=== PATIENT | male | born 1950 | race Caucasian/White ===

== ENCOUNTER 2016-08-30 17:54 | Emergency (ER) | payer MEDICARE, MEDICAID ==
[~2016-08-30] VITALS: Ht 172.7 cm; Wt 58.2 kg
[2016-08-30 18:00] VITALS: Ht 172.7 cm; Wt 58.2 kg
[2016-08-30] MEDS ORDERED: DIPHTH/TET/ACEL PERTUSS (ADULT) 0.5 ML VIAL IM* ONE (18:00)
--- NOTE | 2016-08-30 18:26 | RADRPT ---
PROCEDURE: CT Brain without contrast. CLINICAL INDICATION: Fall with laceration of scalp. TECHNIQUE: A CT of the brain was performed on a [employer] CT scanner utilizi ng a low dose technique with axial imaging from the skull base through the vertex without IV contras t. Multiplanar reformatted images were made. Images were reviewed on a PACS workstation. The CTDI vol is 45 mGy and the DLP is 900.3 mGycm. One or more of the following dose reduction techniques were used: - Automated exposure control. - Adjustment of the mA and/or kV according to patient size. Use of iterative reconstruction technique. COMPARISON: None FINDINGS: There is soft tissue swelling over the right frontal bone consistent with a scalp hematoma. No unde rlying skull fracture is identified. The fourth, third lateral ventricles are normal in size and co nfiguration. The brain parenchyma is normal. An empty sella is suspected. The visible portions of the globes and extraocular muscles are normal. The paranasal sinuses are clear. The mastoid air cells and internal auditory canals are normal. The bony calvarium is intact. IMPRESSION: 1. Negative CT scan of brain without contrast. 2. Small scalp hematoma with soft tissue swelling adjacent to the right frontal bone. 3. Probable empty sella. RPTAT:AAJJ Physician Yina Date Time Electronically viewed and signed by Physician Yina on 08/30/2016 18:26 SHERLYN/
[2016-08-30 19:28] VITALS: BP 149/67; PULSE 70; RESP 16
--- NOTE | 2016-08-30 20:04 | ERD ---
ER Documentation Chief Complaint Date/Time DATE: 08/30/16 TIME: 20:00 Chief Complaint BIB PARAMEDICS - GROUND LEVEL MECHANICAL FALL ; NO KO; FRONTAL HEAD LACERAT HPI Patient is a 66-year-old male with no medical problems who presents with a fall. He was brought in by ambulance. He admits to drinking alcohol and taking Valium. He had a trip and fall and hit his head. He does not know if he lost consciousness. He is an abrasion to the right side of his face. He usually lives in a sober living facility. Upon review of old medical records this is the patient's first visit to the emergency department. His primary doctor is Dr. Zaki Barber. ROS All systems reviewed and are negative except as per history of present illness. Allergies Allergies: Uncoded Allergies: SULFA (Allergy, Mild, 08/30/16) PMhx/Soc Medical and Surgical Hx: pt denies Medical Hx, pt denies Surgical Hx Hx Alcohol Use: Yes Hx Substance Use: No Hx Tobacco Use: Yes Smoking Status: Current every day smoker FmHx Family History: No diabetes Physical Exam Vitals Vital Signs Date Time Temp Pulse Resp B/P Pulse Ox O2 Delivery O2 Flow Rate FiO2 08/30/16 19:28 70 16 149/67 100 Room Air 08/30/16 18:00 98.3 89 18 114/85 97 Physical Exam Const: Abrasion of the right face Head: Abrasion of the right forehead and right face Eyes: Normal Conjunctiva ENT: Normal External Ears, Nose and Mouth. Neck: Full range of motion..~ No meningismus. Resp: Clear to auscultation bilaterally Cardio: Regular rate and rhythm, no murmurs Abd: Soft, non tender, non distended. Normal bowel sounds Skin: Abrasion of the right forehead and right face without laceration Back: No midline or flank tenderness Ext: No cyanosis, or edema Neur: Awake but intoxicated, answering questions appropriately Psych: Normal Mood and Affect Results 24 hrs Current Medications Medications (Trade) Dose Ordered Sig/John Route PRN Reason Start Time Stop Time Status Last Admin Dose Admin Diphtheria/ Tetanus/Acell Pertussis (Adacel) 0.5 ml ONCE ONCE IM* 08/30/16 18:00 08/30/16 18:01 DC 08/30/16 18:06 Procedures/MDM CT brain negative per radiology for intracranial hemorrhage or skull fracture. Smoking Cessation Therapy: Pt. was lectured for greater than 3 minutes on the health risks of continued smoking and the benefits of cessation. Patient is a 66-year-old male who presents with a fall. The patient had abrasion of the right side of the face and a CT scan was negative. The patient is awake and alert and answering questions appropriately. He had wound care provided. A tetanus shot was given. The patient will be discharged home and can return for any worsening symptoms. I do not think he requires further workup or admission to the hospital at this time. He should not drink alcohol to excess and should not combine alcohol with Valium. Departure Diagnosis: Primary Impression: Alcohol intoxication Complication of substance-induced condition: uncomplicated Qualified Code: F10.120 - Alcohol intoxication, uncomplicated Additional Impressions: Concussion Encounter type: initial encounter Loss of consciousness presence/duration: with LOC of 30 min or less Qualified Code: S06.0X1A - Concussion, with LOC of 30 min or less, initial encounter Abrasion Condition: Fair Patient Instructions: Concussion, Abrasion Referrals: ZAKI BARBER NP (PCP) Additional Instructions: Call your primary care doctor TOMORROW for an appointment during the next 1-2 days.See the doctor sooner or return here if your condition worsens before your appointment time. CATHLEEN BASHIR MD Aug 30, 2016 20:03
== END 2016-08-30 19:28 | disposition home or self-care (01) ==
LOC: E/R 17:54
DX: F10.120 Alcohol abuse with intoxication, uncomplicated (principal); S06.0X1A Concussion with loss of consciousness of 30 minutes or less, initial encounter; S00.81XA Abrasion of other part of head, initial encounter; F17.210 Nicotine dependence, cigarettes, uncomplicated; W01.10XA Fall on same level from slipping, tripping and stumbling with subsequent striking against unspecified object, initial encounter; Y92.9 Unspecified place or not applicable; Z23 Encounter for immunization
CPT/HCPCS: 70450; 90471; 90715

== ENCOUNTER 2016-09-01 13:35 | Emergency (ER) | payer MEDICARE, MEDICAID ==
[~2016-09-01] VITALS: Wt 69.0 kg
--- NOTE | 2016-09-01 13:49 | ERD ---
ER Documentation Chief Complaint Date/Time DATE: 09/01/16 TIME: 13:47 Chief Complaint HPI 66-year-old male brought in via EMS for alcohol intoxication. The patient verbalizes that he has been drinking today. The patient was seen here 2 days ago for same. The patient has an abrasion and contusion to the right frontal scalp and periorbital region. This was a noted on exam 2 days ago. Patient denies any recent falls or trauma. No suicidal or homicidal thoughts. He has no other complaints including no chest pain or shortness of breath. ROS All systems reviewed and are negative except as per history of present illness. Medications Home Meds Unable to Obtain Active Prescriptions or Reported Meds Allergies Allergies: Coded Allergies: Sulfa (Sulfonamide Antibiotics) (Unverified Allergy, Unknown, 09/01/16) PMhx/Soc Hx Alcohol Use: Yes Hx Substance Use: No Hx Tobacco Use: Yes FmHx Family History: No diabetes Physical Exam Vitals Vital Signs Date Time Temp Pulse Resp B/P Pulse Ox O2 Delivery O2 Flow Rate FiO2 09/01/16 14:03 98.8 62 16 99/66 93 Room Air 09/01/16 13:43 98.8 92 20 99/65 93 Physical Exam General: Disheveled, smells of alcohol strongly Head: Old contusion and abrasion to right frontal scalp and right periorbital region Eyes: Pupils equally reactive, EOM intact, no evidence of entrapment ENT: Moist mucous membranes Neck: Supple, no lymphadenopathy Respiratory: Lungs clear bilaterally, no distress Cardiovascular: RRR, no murmurs, rubs, or gallops Abdominal: Soft, non-tender, non-distended, no peritoneal signs : Deferred MSK: No edema, no unilateral swelling, 5/5 strength Neurologic: Intoxicated however alert and oriented, moving all extremities, normal speech, no focal weakness, no cerebellar signs Skin: No rash, skin is documented above Psych: Normal mood Procedures/MDM EKG, MONITORS, & DIAGNOSTIC IMAGING: CT brain: IMPRESSION: 1. Mild age related cerebral volume loss. Mild small vessel ischemic changes. 2. Mild atherosclerotic vascular calcification. 3. No mass effect or acute intracranial bleed. RPTAT: DD CT facial bone: IMPRESSION: 1. Superficial right periorbital and right premaxillary soft tissue swelling. 2. No fracture is identified. 3. The patient is edentulous. 4. Otherwise, unremarkable maxillofacial CT. MEDICAL DECISION MAKING: The patient's presentation is consistent with acute alcohol intoxication. The patient does have evidence of subacute injury to the right forehead and periorbital region. I do understand the patient had a recent CT however he is at risk for delayed bleed. Repeat CT brain and facial bone most appropriate. I have a much lower clinical concern for clinically significant traumatic brain injury, meningitis, significant electrolyte disturbance The patient's workup will include appropriate laboratory testing and diagnostic imaging, as well as observation for sobriety. The patient's presentation is most consistent with acute alcohol intoxication leading to acute encephalopathy. The patient is protecting their airway. The patient has no signs or symptoms concerning for impending respiratory failure and does not require intubation at this time. The patient will require observation in the emergency room to allow for metabolization. Once the patient is able to ambulate on their own accord, navigate the community the patient can be safely discharged from the emergency room. ER COURSE: CT imaging negative as documented above. I kept the patient and/or family informed of laboratory and diagnostic imaging results throughout the emergency room course. DISPOSITION PLAN: The patient was observed for sobriety, once he can ambulate he will be discharged. Anticipate discharge home Departure Diagnosis: Primary Impression: Alcohol intoxication Complication of substance-induced condition: uncomplicated Qualified Code: F10.120 - Alcohol intoxication, uncomplicated Condition: Stable ELISSA BOSTON MD Sep 01, 2016 13:49
[2016-09-01 14:03] VITALS: BP 99/66; PULSE 62; RESP 16; TEMP 98.8
--- NOTE | 2016-09-01 14:34 | RADRPT ---
PROCEDURE: CT Head without contrast. CLINICAL INDICATION: Trauma, pain TECHNIQUE: Continuous axial CT images were obtained from the base of skull to the vertex. No cont rast was administered. The calculated radiation dose measures 720 mGy centimeters. The CTDI measures 44 mGy COMPARISON: No prior studies are available for comparison. FINDINGS: There is mild diffuse cerebral volume loss. The ventricles are symmetric and normal in configuratio n. There is no mass effect or midline shift. There is no abnormal intra-axial or extra-axial fluid collection. There is no evidence of intracranial hemorrhage. There are scattered areas of decreased attenuation in the supratentorial white matter, consistent wi th mild small vessel ischemic changes. There is mild atherosclerotic vascular calcification. The bony calvarium is intact. The orbital soft tissue contents are unremarkable. Paranasal sinuses appear clear. IMPRESSION: 1. Mild age related cerebral volume loss. Mild small vessel ischemic changes. 2. Mild atherosclerotic vascular calcification. 3. No mass effect or acute intracranial bleed. RPTAT: DD .Ludwin Quispe MD, MD Date Time Electronically viewed and signed by .Ludwin Quispe MD, on 09/01/2016 14:33 .T/
--- NOTE | 2016-09-01 14:41 | RADRPT ---
PROCEDURE: CT Maxillofacial without Contrast CLINICAL INDICATION: Trauma TECHNIQUE: Transaxial images were obtained through the maxillofacial region on a multi-slice scan er without the intravenous contrast administration. Sagittal and coronal re-formations were subseque ntly reconstructed. One or more of the following dose reduction techniques were used: - Automated exposure control. - Adjustment of the mA and/or kV according to patient size. - Use of iterative reconstruction technique. Radiation dose: CTDIvol = 29.55 mGy; DLP = 647.32 mGy-cm. COMPARISON: No prior studies are available for comparison. FINDINGS: Osseous structures: Appear intact with no fracture or destructive process evident. The patient is ed entulous. Paranasal sinuses: Appear well developed and well aerated with no opacification, air-fluid level or mucoperiosteal thickening evident. Mastoid air cells: Appear well pneumatized. Temporomandibular joints: Appear unremarkable. Orbits: The ocular globes, optic nerves, and intraorbital contents appear unremarkable. Soft tissues: There is superficial right periorbital and right premaxillary soft tissue swelling IMPRESSION: 1. Superficial right periorbital and right premaxillary soft tissue swelling. 2. No fracture is identified. 3. The patient is edentulous. 4. Otherwise, unremarkable maxillofacial CT. Physician Ragini Date Time Electronically viewed and signed by Physician Ragini on 09/01/2016 14:41 /
== END 2016-09-01 20:06 | disposition home or self-care (01) ==
LOC: E/R 13:35
DX: F10.120 Alcohol abuse with intoxication, uncomplicated (principal); F17.210 Nicotine dependence, cigarettes, uncomplicated; R51 Headache
CPT/HCPCS: 70450; 70486

== ENCOUNTER 2016-09-04 19:46 | Emergency (ER) | payer MEDICARE, OTHER ==
[~2016-09-04] VITALS: Ht 162.6 cm; Wt 75.0 kg
[2016-09-04 19:50] VITALS: Ht 162.6 cm; Wt 75.0 kg
--- NOTE | 2016-09-04 20:02 | ERD ---
ER Documentation Chief Complaint Date/Time DATE: 09/04/16 TIME: 20:01 Chief Complaint etoh intoxication HPI This 66-year-old male presents to the ER for evaluation of alcohol intoxication. This patient has been seen multiple times in the emergency room for the same. He is denying homicidal suicidal ideation ROS All systems reviewed and are negative except as per history of present illness. Medications Home Meds Unable to Obtain Active Prescriptions or Reported Meds Allergies Allergies: Coded Allergies: Sulfa (Sulfonamide Antibiotics) (Unverified Allergy, Unknown, 09/01/16) PMhx/Soc Hx Alcohol Use: Yes Hx Substance Use: No Hx Tobacco Use: Yes Physical Exam Vitals Vital Signs Date Time Temp Pulse Resp B/P Pulse Ox O2 Delivery O2 Flow Rate FiO2 09/04/16 19:50 98.6 101 20 101/50 96 Physical Exam Const: Disheveled appearance Head: Superficial abrasions, chronic appearing on scalp Eyes: Normal Conjunctiva ENT: Normal External Ears, Nose and Mouth. Neck: Full range of motion..~ No meningismus. Resp: Clear to auscultation bilaterally Cardio: Regular rate and rhythm, no murmurs Abd: Soft, non tender, non distended. Normal bowel sounds Skin: No petechiae or rashes Back: No midline or flank tenderness Ext: No cyanosis, or edema Neur: Awake and alert Psych: Normal Mood and Affect Procedures/MDM This 66-year-old male presents to the ER for evaluation of alcohol intoxication. The patient is denying homicidal suicidal ideation. The patient will be discharged home and is clinically sober. Smoking Cessation Therapy: Pt. was lectured for greater than 3 minutes on the health risks of continued smoking and the benefits of cessation. Departure Diagnosis: Primary Impression: Alcohol abuse Additional Impressions: Tobacco abuse Tobacco abuse counseling Condition: RAY Mackey DO Sep 04, 2016 20:02
[2016-09-04 21:35] VITALS: BP 113/65; PULSE 81; RESP 18; TEMP 98.2
== END 2016-09-04 21:35 | disposition home or self-care (01) ==
LOC: E/R 19:46
DX: F10.129 Alcohol abuse with intoxication, unspecified (principal); F17.210 Nicotine dependence, cigarettes, uncomplicated; Z71.6 Tobacco abuse counseling
CPT/HCPCS: 82962; 99282

== ENCOUNTER 2016-11-14 17:23 | Emergency (ER) | payer MEDICARE, OTHER ==
[~2016-11-14] VITALS: Ht 175.3 cm; Wt 55.0 kg
[2016-11-14 18:16] VITALS: Ht 175.3 cm; Wt 55.0 kg
== END 2016-11-14 23:33 | disposition left against medical advice (07) ==
LOC: FTE 17:23
DX: Z53.21 Procedure and treatment not carried out due to patient leaving prior to being seen by health care provider (principal)